=== PATIENT | female | born 1970 | race American Indian/Alaskan Native ===

== ENCOUNTER 2017-05-15 15:08 | Outpatient (CLI) | payer BC ==
--- NOTE | 2017-05-16 16:03 | Mammography Report ---
BILATERAL DIGITAL SCREENING MAMMOGRAM with CAD: 05/15/17 15:08:00 CLINICAL: Routine screening. COMPARISON:09/24/13 and 08/26/11 FINDINGS: The breasts are heterogeneously dense, which may obscure small masses. Right asymmetries require additional imaging.No architectural distortion or suspicious calcifications.The left breast is negative. IMPRESSION: Right asymmetries requiring further workup. BI-RADS CATEGORY: 0 -- Additional Imaging Evaluation Required RECOMMENDATION: Recall for right mediolateral , spot compression CC and MLO views and right breast ultrasound if needed. ACR BI-RADS MAMMOGRAPHIC CODES: 0 = Needs additional imaging evaluation; 1 = Negative; 2 = Benign; 3 = Probably benign; 4 = Suspicious; 5 = Malignant; 6 = Known biopsy-proven malignancy COMMENT: 1. Dense breast tissue, i.e., adenosis, fibrocystic changes, etc., may obscure an underlying neoplasm. 2. Approximately 10% of cancers are not detected with mammography. 3. A negative mammography report should not delay biopsy if a clinically suspicious mass is present. COMMENT: Patient follow-up letters are generated via our [employer] application.
== END 2017-05-15 15:09 | disposition home or self-care (01) ==
LOC: SPVWC 15:08
DX: Z12.31 Encounter for screening mammogram for malignant neoplasm of breast (principal)
CPT/HCPCS: 77067

== ENCOUNTER 2017-05-29 13:26 | Outpatient (CLI) | payer BC ==
--- NOTE | 2017-05-29 15:50 | XRay Report ---
LEFT FOOT THREE VIEWS: 05/29/17 CLINICAL: Pain. FINDINGS: No fracture or dislocation. Mild hallux valgus deformity. Joint spaces are normal. A prominent plantar calcaneal spur and smaller Achilles spurs. Mild soft tissue swelling of the forefoot. No soft tissue air or foreign body. IMPRESSION: Plantar and Achilles calcaneal enthesopathy. Mild nonspecific soft tissue swelling.
== END 2017-05-29 13:27 | disposition home or self-care (01) ==
LOC: SPVIMAG 13:26
PROVIDERS: ATTEND Psychiatry & Neurology Neurology
DX: M20.12 Hallux valgus (acquired), left foot (principal); M77.32 Calcaneal spur, left foot

== ENCOUNTER 2017-06-06 14:50 | Outpatient (CLI) | payer BC ==
--- NOTE | 2017-06-06 15:19 | Mammography Report ---
RIGHT DIGITAL DIAGNOSTIC MAMMOGRAM : 06/06/17 14:50:00 CLINICAL: Recalled for asymmetry. COMPARISON:05/15/17 screening FINDINGS: ML and spot compression MLO and CC views were performed and are negative. IMPRESSION: Negative Mammogram. BI-RADS CATEGORY: 1 -- Negative RECOMMENDATION: Routine mammographic screening in one year. ACR BI-RADS MAMMOGRAPHIC CODES: 0 = Needs additional imaging evaluation; 1 = Negative; 2 = Benign; 3 = Probably benign; 4 = Suspicious; 5 = Malignant; 6 = Known biopsy-proven malignancy COMMENT: 1. Dense breast tissue, i.e., adenosis, fibrocystic changes, etc., may obscure an underlying neoplasm. 2. Approximately 10% of cancers are not detected with mammography. 3. A negative mammography report should not delay biopsy if a clinically suspicious mass is present. COMMENT: Patient follow-up letters are generated via our [employer] application.
== END 2017-06-06 14:51 | disposition home or self-care (01) ==
LOC: SPVWC 14:50
DX: R92.8 Other abnormal and inconclusive findings on diagnostic imaging of breast (principal)